=== PATIENT | male | born 1960 | race African-American/Black ===

== ENCOUNTER 2021-01-15 10:57 | Inpatient (IN) | payer OTHER ==
[2021-01-15 11:16] VITALS: BMI 24.4
[2021-01-15] MEDS ORDERED: MAGNESIUM CITRATE 300 ML BOTTLE PO PRN (11:27)
[2021-01-15] MEDS ORDERED: MENTHOL/PHENOL 1 EACH UD MM PRN (11:27)
[2021-01-15] MEDS ORDERED: ONDANSETRON *ODT* 4 MG TABLET SL PRN (11:27)
[2021-01-15] MEDS ORDERED: BISMUTH SUBSALICYLATE 262 MG/15 ML BTL PO PRN (11:27)
[2021-01-15] MEDS ORDERED: MAG HYDROX/AL HYDROX/SIMETH 30 ML UNIT-DOSE CUP PO PRN (11:27)
[2021-01-15] MEDS ORDERED: ACETAMINOPHEN 325 MG TABLET (FP) PO PRN (11:27)
[2021-01-15] MEDS ORDERED: diazePAM 5 MG TABLET PO PRN (11:27)
[2021-01-15] MEDS ORDERED: MAGNESIUM HYDROX 2400MG/30ML ORAL SUSPENSION 30 ML CUP PO PRN (11:27)
[2021-01-15] MEDS: hydrOXYzine PAMOATE 25 MG CAPSULE (FP) PO SCH ×3 (13:24→22:08)
[2021-01-15] MEDS: PRENATAL VITAMINS W/ FOLIC ACID TABLET (FP) PO SCH (13:25)
[2021-01-15] MEDS: diazePAM 5 MG TABLET PO SCH ×3 (13:25→22:08)
[2021-01-15] MEDS: NICOTINE 14 MG/24 HOURS TOPICAL PATCH TD SCH (13:31)
[2021-01-15 15:52] LABS: HEMATOCRIT 39.1 % (35.4-49); HEMOGLOBIN 12.6 GM/dL (11.7-16.9); MCH 27.3 pg (25.7-33.7); MCHC 32.3 g/dl (32.0-35.9); MEAN CELL VOLUME 84.6 fl (80-96); MEAN PLT VOLUME 7.2 fl (7.5-11.1); PLATELET COUNT 277 10^3/uL (134-434); RBC 4.62 M/mm3 (4.00-5.60); RDW 15.7 % (11.9-15.9); WHITE BLOOD COUNT 3.7 K/mm3 (4.0-10.0)
[2021-01-15 15:53] LABS: CHLORIDE 103 mmol/L (98-107); SODIUM 139 mmol/L (136-145)
[2021-01-15 15:55] LABS: CALCIUM 9.1 mg/dL (8.5-10.1)
[2021-01-15 15:56] LABS: ANION GAP 6 MMOL/L (8-16); CO2 30 mmol/L (21-32); GLUCOSE,RANDOM 126 mg/dL (74-106)
[2021-01-15 15:57] LABS: ALBUMIN 3.8 g/dl (3.4-5.0)
[2021-01-15 15:59] LABS: SGOT/AST 28 U/L (15-37); SGPT/ALT 27 U/L (13-61)
[2021-01-15 16:00] LABS: CREATININE 1.4 mg/dL (0.55-1.3)
[2021-01-15 16:01] LABS: BILIRUBIN,TOTAL 0.5 mg/dL (0.2-1); TOT PROT 8.3 g/dl (6.4-8.2)
[2021-01-15 16:02] LABS: ALK PHOS 93 U/L (45-117)
[2021-01-15] MEDS: NICOTINE 10 MG CARTRIDGE (INHALER) IH PRN (17:30)
[2021-01-15] MEDS: MELATONIN 5 MG TABLETS PO SCH (22:08)
[2021-01-15] MEDS: THIAMINE HCL 100 MG TABLET (FP) PO SCH (22:08)
[2021-01-16] MEDS: methaDONE HCL 40 MG DISPERSABLE TABLET PO SCH (05:17)
[2021-01-16] MEDS: hydrOXYzine PAMOATE 25 MG CAPSULE (FP) PO SCH ×5 (05:18→22:23)
[2021-01-16] MEDS: diazePAM 5 MG TABLET PO SCH ×4 (05:18→22:23)
[2021-01-16] MEDS: METHOCARBAMOL 500 MG TABLET PO PRN ×2 (05:18→10:29)
[2021-01-16] MEDS: PRENATAL VITAMINS W/ FOLIC ACID TABLET (FP) PO SCH (10:26)
[2021-01-16] MEDS: NICOTINE 14 MG/24 HOURS TOPICAL PATCH TD SCH (10:26)
[2021-01-16] MEDS: IBUPROFEN 400 MG TABLET (FP) PO PRN (10:29)
[2021-01-16] MEDS: ACETAMINOPHEN 325 MG TABLET (FP) PO PRN (14:54)
[2021-01-16] MEDS: NICOTINE POLACRILEX 2 MG GUM BUC PRN (18:12)
[2021-01-16] MEDS: THIAMINE HCL 100 MG TABLET (FP) PO SCH (22:23)
[2021-01-16] MEDS: MELATONIN 5 MG TABLETS PO SCH (22:23)
[2021-01-17] MEDS: diazePAM 5 MG TABLET PO SCH ×3 (05:05→22:21)
[2021-01-17] MEDS: hydrOXYzine PAMOATE 25 MG CAPSULE (FP) PO SCH ×5 (05:05→22:21)
[2021-01-17] MEDS: METHOCARBAMOL 500 MG TABLET PO PRN ×2 (05:06→15:36)
[2021-01-17] MEDS: methaDONE HCL 40 MG DISPERSABLE TABLET PO SCH (05:06)
[2021-01-17] MEDS: PRENATAL VITAMINS W/ FOLIC ACID TABLET (FP) PO SCH (10:06)
[2021-01-17] MEDS: NICOTINE 14 MG/24 HOURS TOPICAL PATCH TD SCH (10:07)
[2021-01-17] MEDS: NICOTINE POLACRILEX 2 MG GUM BUC PRN ×2 (10:08→17:58)
[2021-01-17 10:37] LABS: BLOOD UREA NITROGEN 18.1 mg/dL (7-18); CALCIUM 9.3 mg/dL (8.5-10.1)
[2021-01-17] MEDS: ACETAMINOPHEN 325 MG TABLET (FP) PO PRN (15:35)
[2021-01-17] MEDS: MELATONIN 5 MG TABLETS PO SCH (22:22)
[2021-01-17] MEDS: THIAMINE HCL 100 MG TABLET (FP) PO SCH (22:22)
[2021-01-18] MEDS: methaDONE HCL 40 MG DISPERSABLE TABLET PO SCH (05:55)
[2021-01-18] MEDS: hydrOXYzine PAMOATE 25 MG CAPSULE (FP) PO SCH ×5 (05:56→21:19)
[2021-01-18] MEDS: diazePAM 5 MG TABLET PO SCH ×2 (05:56→17:28)
[2021-01-18] MEDS: METHOCARBAMOL 500 MG TABLET PO PRN (05:57)
[2021-01-18] MEDS: PRENATAL VITAMINS W/ FOLIC ACID TABLET (FP) PO SCH (10:07)
[2021-01-18] MEDS: NICOTINE 14 MG/24 HOURS TOPICAL PATCH TD SCH (10:08)
[2021-01-18] MEDS: IBUPROFEN 400 MG TABLET (FP) PO PRN (21:18)
[2021-01-18] MEDS: MELATONIN 5 MG TABLETS PO SCH (21:19)
[2021-01-18] MEDS: THIAMINE HCL 100 MG TABLET (FP) PO SCH (21:20)
[2021-01-18] MEDS: ACETAMINOPHEN 325 MG TABLET (FP) PO PRN (23:17)
[2021-01-19] MEDS: methaDONE HCL 40 MG DISPERSABLE TABLET PO SCH (05:12)
[2021-01-19] MEDS: hydrOXYzine PAMOATE 25 MG CAPSULE (FP) PO SCH ×2 (05:12→10:15)
[2021-01-19] MEDS ORDERED: diazePAM 5 MG TABLET PO ONE (06:00)
[2021-01-19 10:05] VITALS: BP 138/90; PULSE 68; TEMP 97.1
[2021-01-19] MEDS: PRENATAL VITAMINS W/ FOLIC ACID TABLET (FP) PO SCH (10:15)
[2021-01-19] MEDS: NICOTINE 14 MG/24 HOURS TOPICAL PATCH TD SCH (10:16)
[2021-01-19] MEDS: NICOTINE 10 MG CARTRIDGE (INHALER) IH PRN (10:18)
[2021-01-19] MEDS: NICOTINE POLACRILEX 2 MG GUM BUC PRN (10:19)
== END 2021-01-19 11:40 | disposition other institution (70) | DRG 773 ==
LOC: YASAS 10:57 → Y3N 12:01
PROVIDERS: ADMIT Allergy & Immunology; ATTEND Allergy & Immunology
PROC: HZ2ZZZZ Detoxification Services for Substance Abuse Treatment (ICD-10-PCS; principal; 2021-01-15)
DX: F11.23 Opioid dependence with withdrawal (principal); F10.230 Alcohol dependence with withdrawal, uncomplicated; F14.20 Cocaine dependence, uncomplicated; F17.210 Nicotine dependence, cigarettes, uncomplicated; F19.24 Other psychoactive substance dependence with psychoactive substance-induced mood disorder; Z21 Asymptomatic human immunodeficiency virus [HIV] infection status; G47.00 Insomnia, unspecified; I10 Essential (primary) hypertension; K21.9 Gastro-esophageal reflux disease without esophagitis; J45.909 Unspecified asthma, uncomplicated; M54.50 Low back pain, unspecified; G89.29 Other chronic pain; Z98.890 Other specified postprocedural states; Z56.0 Unemployment, unspecified; Z86.69 Personal history of other diseases of the nervous system and sense organs
CPT/HCPCS: 36415; 80048; 80053; 82947; 83036; 84484; 85027; 86780; 93005; 93010; C9803; U0003; U0005

== ENCOUNTER 2021-01-19 11:48 | Inpatient (IN) | payer OTHER ==
[2021-01-19] MEDS ORDERED: LOPERAMIDE HCL 2 MG CAPSULE PO PRN (16:06)
[2021-01-19] MEDS ORDERED: guaiFENesin 200 MG/10 ML 10 ML UNIT-DOSE CUPS PO PRN (16:06)
[2021-01-19] MEDS ORDERED: MENTHOL/PHENOL 1 EACH UD MM PRN (16:06)
[2021-01-19] MEDS ORDERED: MAGNESIUM CITRATE 300 ML BOTTLE PO PRN (16:06)
[2021-01-19] MEDS ORDERED: NICOTINE POLACRILEX 2 MG GUM BUC PRN (16:06)
[2021-01-19] MEDS ORDERED: P-EPHED 60MG/TRIPROLIDI 2.5MG TABLET PO PRN (16:06)
[2021-01-19] MEDS ORDERED: NICOTINE 10 MG CARTRIDGE (INHALER) IH PRN (16:06)
[2021-01-19] MEDS ORDERED: ACETAMINOPHEN 325 MG TABLET (FP) PO PRN (16:06)
[2021-01-19] MEDS ORDERED: MAGNESIUM HYDROX 2400MG/30ML ORAL SUSPENSION 30 ML CUP PO PRN (16:06)
[2021-01-19] MEDS ORDERED: MAG HYDROX/AL HYDROX/SIMETH 30 ML UNIT-DOSE CUP PO PRN (16:06)
[2021-01-19] MEDS: hydrOXYzine PAMOATE 25 MG CAPSULE (FP) PO PRN ×2 (16:48→21:50)
[2021-01-19] MEDS: IBUPROFEN 400 MG TABLET (FP) PO PRN (16:48)
[2021-01-19] MEDS ORDERED: cloNIDine HCL 0.1 MG TABLET PO ONE (17:32)
[2021-01-19] MEDS: MELATONIN 5 MG TABLETS PO SCH (21:49)
[2021-01-19] MEDS: THIAMINE HCL 100 MG TABLET (FP) PO SCH (21:49)
[2021-01-20] MEDS: methaDONE HCL 40 MG DISPERSABLE TABLET PO SCH (07:18)
[2021-01-20] MEDS: PRENATAL VITAMINS W/ FOLIC ACID TABLET (FP) PO SCH (09:46)
[2021-01-20] MEDS: NICOTINE 14 MG/24 HOURS TOPICAL PATCH TD SCH (09:47)
[2021-01-20] MEDS ORDERED: cloNIDine HCL 0.1 MG TABLET PO ONE (11:03)
[2021-01-20] MEDS: IBUPROFEN 400 MG TABLET (FP) PO PRN ×2 (14:11→21:16)
[2021-01-20] MEDS: MELATONIN 5 MG TABLETS PO SCH (21:16)
[2021-01-20] MEDS: THIAMINE HCL 100 MG TABLET (FP) PO SCH (21:16)
[2021-01-20] MEDS: hydrOXYzine PAMOATE 25 MG CAPSULE (FP) PO PRN (21:16)
[2021-01-21] MEDS: methaDONE HCL 40 MG DISPERSABLE TABLET PO SCH (06:45)
[2021-01-21] MEDS: IBUPROFEN 400 MG TABLET (FP) PO PRN (06:49)
[2021-01-21] MEDS: PRENATAL VITAMINS W/ FOLIC ACID TABLET (FP) PO SCH (09:19)
[2021-01-21] MEDS: NICOTINE 14 MG/24 HOURS TOPICAL PATCH TD SCH (09:19)
[2021-01-21] MEDS ORDERED: cloNIDine HCL 0.1 MG TABLET PO PRN (11:30)
[2021-01-21] MEDS: MELATONIN 5 MG TABLETS PO SCH (21:04)
[2021-01-21] MEDS: THIAMINE HCL 100 MG TABLET (FP) PO SCH (21:04)
[2021-01-21] MEDS: hydrOXYzine PAMOATE 25 MG CAPSULE (FP) PO PRN (21:04)
[2021-01-22] MEDS: methaDONE HCL 40 MG DISPERSABLE TABLET PO SCH (06:43)
[2021-01-22] MEDS: PRENATAL VITAMINS W/ FOLIC ACID TABLET (FP) PO SCH (09:46)
[2021-01-22] MEDS: NICOTINE 14 MG/24 HOURS TOPICAL PATCH TD SCH (09:46)
[2021-01-22] MEDS: IBUPROFEN 400 MG TABLET (FP) PO PRN ×2 (09:47→22:01)
[2021-01-22] MEDS: LIDOCAINE 5% TOPICAL PATCH TP SCH (13:09)
[2021-01-22] MEDS: METHYL SALICYLATE/MENTHOL OINT 30 GM TUBE TP SCH ×2 (13:09→22:02)
[2021-01-22] MEDS: hydrOXYzine PAMOATE 25 MG CAPSULE (FP) PO PRN (20:15)
[2021-01-22] MEDS: GABAPENTIN 300 MG CAPSULE PO PRN (22:01)
[2021-01-22] MEDS: THIAMINE HCL 100 MG TABLET (FP) PO SCH (22:02)
[2021-01-22] MEDS: LIDOCAINE PATCH REMOVAL MC SCH (22:02)
[2021-01-22] MEDS: MELATONIN 5 MG TABLETS PO SCH (22:02)
[2021-01-23] MEDS: methaDONE HCL 40 MG DISPERSABLE TABLET PO SCH (06:35)
[2021-01-23] MEDS ORDERED: BICTEGRAV/EMTRICIT/TENOFOV (BIKTARVY) 50-200-25 MG TABLET PO SCH (08:00)
[2021-01-23] MEDS: PRENATAL VITAMINS W/ FOLIC ACID TABLET (FP) PO SCH (09:49)
[2021-01-23] MEDS: LIDOCAINE 5% TOPICAL PATCH TP SCH (09:50)
[2021-01-23] MEDS: METHYL SALICYLATE/MENTHOL OINT 30 GM TUBE TP SCH ×2 (09:50→21:17)
[2021-01-23] MEDS: NICOTINE 14 MG/24 HOURS TOPICAL PATCH TD SCH (09:51)
[2021-01-23] MEDS ORDERED: LISINOPRIL 20 MG TABLET PO SCH (10:00)
[2021-01-23] MEDS ORDERED: HYDROCHLOROTHIAZIDE 25 MG TABLET (FP) PO SCH (10:00)
[2021-01-23] MEDS ORDERED: amLODIPine BESYLATE 5 MG TABLET (FP) PO SCH (10:00)
[2021-01-23] MEDS: LIDOCAINE PATCH REMOVAL MC SCH (21:17)
[2021-01-23] MEDS: THIAMINE HCL 100 MG TABLET (FP) PO SCH (21:18)
[2021-01-23] MEDS: GABAPENTIN 300 MG CAPSULE PO PRN (21:18)
[2021-01-23] MEDS: IBUPROFEN 400 MG TABLET (FP) PO PRN (21:18)
[2021-01-23] MEDS: MELATONIN 5 MG TABLETS PO SCH (21:18)
[2021-01-23] MEDS: hydrOXYzine PAMOATE 25 MG CAPSULE (FP) PO PRN (21:18)
[2021-01-23 23:16] VITALS: TEMP 98.6
[2021-01-23 23:27] VITALS: BP 170/95; PULSE 83
== END 2021-01-23 22:35 | disposition left against medical advice (07) | DRG 770 ==
LOC: YASAS 11:48 → Y5N 11:49
PROVIDERS: ADMIT Allergy & Immunology; ATTEND Allergy & Immunology
PROC: HZ42ZZZ Group Counseling for Substance Abuse Treatment, Cognitive-Behavioral (ICD-10-PCS; principal; 2021-01-19)
DX: F14.20 Cocaine dependence, uncomplicated (principal); F17.210 Nicotine dependence, cigarettes, uncomplicated; Z21 Asymptomatic human immunodeficiency virus [HIV] infection status; I10 Essential (primary) hypertension; J45.909 Unspecified asthma, uncomplicated; K21.9 Gastro-esophageal reflux disease without esophagitis; M54.50 Low back pain, unspecified; G89.29 Other chronic pain; R20.0 Anesthesia of skin
CPT/HCPCS: 93005; 93010; J0735

== ENCOUNTER 2024-02-01 17:50 | Inpatient (IN) | payer OTHER ==
[2024-02-01 18:33] VITALS: BMI 21.8
[2024-02-01] MEDS ORDERED: diazePAM 5 MG TABLET PO PRN (18:53)
[2024-02-01] MEDS ORDERED: NICOTINE POLACRILEX 2 MG LOZENGE BC PRN (19:00)
[2024-02-01] MEDS ORDERED: MAGNESIUM HYDROX 2400MG/30ML ORAL SUSPENSION 30 ML CUP PO PRN (19:00)
[2024-02-01] MEDS ORDERED: IBUPROFEN 400 MG TABLET (FP) PO PRN (19:00)
[2024-02-01] MEDS ORDERED: guaiFENesin 600 MG TABLET.ER (FP) PO PRN (19:00)
[2024-02-01] MEDS ORDERED: LOPERAMIDE HCL 2 MG CAPSULE PO PRN (19:00)
[2024-02-01] MEDS ORDERED: NICOTINE POLACRILEX 2 MG GUM BUC PRN (19:00)
[2024-02-01] MEDS ORDERED: IBUPROFEN 600 MG TABLET (FP) PO PRN (19:00)
[2024-02-01] MEDS ORDERED: BENZONATATE 200 MG CAPSULE PO PRN (19:00)
[2024-02-01] MEDS ORDERED: DICYCLOMINE HCL 10 MG CAPSULE PO PRN (19:00)
[2024-02-01] MEDS ORDERED: ACETAMINOPHEN 325 MG TABLET (FP) PO PRN (19:00)
[2024-02-01] MEDS ORDERED: POLYETHYLENE GLYCOL (HEALTHYLAX) 3350 17 GM PACKET PO PRN (19:00)
[2024-02-01] MEDS ORDERED: ONDANSETRON *ODT* 4 MG TABLET SL PRN (19:00)
[2024-02-01] MEDS ORDERED: NALOXONE (NARCAN) HCL 4 MG/0.1 ML SPRAY NS PRN (19:00)
[2024-02-01] MEDS ORDERED: BISMUTH SUBSALICYLATE 524 MG/30 ML PO PRN (19:00)
[2024-02-01] MEDS ORDERED: BENZOCAINE/MENTHOL (CHLORASEPTIC ) LOZENGE MM PRN (19:00)
[2024-02-01] MEDS: THIAMINE 100 MG TABLET PO SCH (22:17)
[2024-02-01] MEDS: METHOCARBAMOL 500 MG TABLET PO PRN (22:18)
[2024-02-01] MEDS: diazePAM 5 MG TABLET PO SCH (22:18)
[2024-02-01] MEDS: MELATONIN 5 MG TABLETS PO SCH (22:19)
[2024-02-02] MEDS: diazePAM 5 MG TABLET PO SCH (05:30)
[2024-02-02] MEDS ORDERED: diazePAM 5 MG TABLET PO SCH (06:00)
[2024-02-02] MEDS ORDERED: methaDONE HCL 40 MG DISPERSABLE TABLET PO SCH (08:45)
[2024-02-02] MEDS: BICTEGRAV/EMTRICIT/TENOFOV (BIKTARVY) 50-200-25 MG TABLET PO SCH (09:11)
[2024-02-02] MEDS: HYDROCHLOROTHIAZIDE 25 MG TABLET (FP) PO SCH (09:11)
[2024-02-02] MEDS: PRENATAL VITAMINS W/ FOLIC ACID TABLET (FP) PO SCH (09:12)
[2024-02-02] MEDS: PANTOPRAZOLE 20 MG TABLET PO SCH (09:12)
[2024-02-02] MEDS: FLU VACCINE (FLULAVAL) PF 45 MCG/0.5 ML SYRINGE 2024-2025 IM ONE (11:16)
[2024-02-02 11:19] LABS: HEMATOCRIT 37.7 % (35.4-49); HEMOGLOBIN 12.4 GM/dL (11.7-16.9); MCH 28.5 pg (25.7-33.7); MCHC 32.8 g/dl (32.0-35.9); MEAN CELL VOLUME 86.8 fl (80-96); MEAN PLT VOLUME 7.3 fl (7.5-11.1); PLATELET COUNT 288 10^3/uL (134-434); RBC 4.35 M/mm3 (4.00-5.60); RDW 15.2 % (11.9-15.9); WHITE BLOOD COUNT 3.2 K/mm3 (4.0-10.0)
[2024-02-02 11:26] LABS: CHLORIDE 104 mmol/L (98-107); POTASSIUM 3.7 mmol/L (3.5-5.1); SODIUM 139 mmol/L (136-145)
[2024-02-02 11:30] LABS: ANION GAP 4 mmol/L (4-13); CALCIUM 8.9 mg/dL (8.5-10.1); CO2 31 mmol/L (21-32)
[2024-02-02 11:31] LABS: BLOOD UREA NITROGEN 22.2 mg/dL (7-18); GLUCOSE,RANDOM 142 mg/dL (74-106)
[2024-02-02 11:34] LABS: CREATININE 1.3 mg/dL (0.55-1.3); SGOT/AST 19 U/L (15-37); SGPT/ALT 22 U/L (13-61)
[2024-02-02 11:35] LABS: BILIRUBIN,TOTAL 0.4 mg/dL (0.2-1); TOT PROT 6.6 g/dl (6.4-8.2)
[2024-02-02 11:36] LABS: ALK PHOS 105 U/L (45-117)
[2024-02-02] MEDS: MAG HYDROX/AL HYDROX/SIMETH 30 ML UNIT-DOSE CUP PO PRN (17:17)
[2024-02-03] MEDS: diazePAM 5 MG TABLET PO ONE (05:23)
[2024-02-03] MEDS ORDERED: diazePAM 5 MG TABLET PO SCH (06:00)
[2024-02-04] MEDS ORDERED: diazePAM 5 MG TABLET PO ONE (06:00)
[2024-02-04] MEDS ORDERED: ALBUTEROL SO4 HFA INHALER IH PRN (09:22)
[2024-02-04] MEDS: NALOXONE (NYS OPIOID OVERDOSE PROGRAM) 4 MG/0.1 ML SPRAY NS SCH (10:34)
[2024-02-04 12:36] VITALS: BP 121/79; PULSE 79; RESP 16; TEMP 97.7
== END 2024-02-04 13:09 | disposition other institution (70) | DRG 773 ==
LOC: YASAS 17:50 → Y3N 19:41 → Y6N 20:04
PROVIDERS: ADMIT Allergy & Immunology; ATTEND Surgery
PROC: HZ2ZZZZ Detoxification Services for Substance Abuse Treatment (ICD-10-PCS; principal; 2024-02-01)
DX: F10.230 Alcohol dependence with withdrawal, uncomplicated (principal); F11.20 Opioid dependence, uncomplicated; F14.20 Cocaine dependence, uncomplicated; F17.210 Nicotine dependence, cigarettes, uncomplicated; F19.282 Other psychoactive substance dependence with psychoactive substance-induced sleep disorder; Z21 Asymptomatic human immunodeficiency virus [HIV] infection status; G47.00 Insomnia, unspecified; I10 Essential (primary) hypertension; K21.9 Gastro-esophageal reflux disease without esophagitis; M54.50 Low back pain, unspecified; G89.29 Other chronic pain
CPT/HCPCS: 36415; 80053; 80305; 80307; 83036; 85027; 86780; 87811; 93005; 93010

== ENCOUNTER 2024-02-04 13:15 | Inpatient (IN) | payer OTHER ==
[2024-02-04] MEDS ORDERED: IBUPROFEN 400 MG TABLET (FP) PO PRN (15:54)
[2024-02-04] MEDS ORDERED: LOPERAMIDE HCL 2 MG CAPSULE PO PRN (15:54)
[2024-02-04] MEDS ORDERED: BENZOCAINE/MENTHOL (CHLORASEPTIC ) LOZENGE MM PRN (15:54)
[2024-02-04] MEDS ORDERED: NICOTINE POLACRILEX 2 MG GUM BUC PRN (15:54)
[2024-02-04] MEDS ORDERED: guaiFENesin 600 MG TABLET.ER (FP) PO PRN (15:54)
[2024-02-04] MEDS ORDERED: BENZONATATE 200 MG CAPSULE PO PRN (15:54)
[2024-02-04] MEDS ORDERED: POLYETHYLENE GLYCOL (HEALTHYLAX) 3350 17 GM PACKET PO PRN (15:54)
[2024-02-04] MEDS: MELATONIN 5 MG TABLETS PO SCH (21:53)
[2024-02-04] MEDS: THIAMINE 100 MG TABLET PO SCH (21:53)
[2024-02-05] MEDS ORDERED: methaDONE HCL 10 MG TABLET PO SCH (06:00)
[2024-02-05] MEDS: PRENATAL VITAMINS W/ FOLIC ACID TABLET (FP) PO SCH (06:07)
[2024-02-05] MEDS: NICOTINE 14 MG/24 HOURS TOPICAL PATCH TD SCH (06:08)
[2024-02-05] MEDS ORDERED: ALBUTEROL SO4 HFA INHALER IH PRN (08:58)
[2024-02-05] MEDS: PANTOPRAZOLE 20 MG TABLET PO SCH (09:38)
[2024-02-05] MEDS: amLODIPine BESYLATE 5 MG TABLET (FP) PO SCH (09:38)
[2024-02-05] MEDS: HYDROCHLOROTHIAZIDE 25 MG TABLET (FP) PO SCH (09:38)
[2024-02-05] MEDS: BICTEGRAV/EMTRICIT/TENOFOV (BIKTARVY) 50-200-25 MG TABLET PO SCH (09:38)
[2024-02-05] MEDS: METHOCARBAMOL 500 MG TABLET PO PRN (21:14)
[2024-02-07] MEDS: ACETAMINOPHEN 325 MG TABLET (FP) PO PRN (09:57)
[2024-02-09] MEDS: LIDOCAINE 5% TOPICAL PATCH TP SCH (16:29)
[2024-02-09] MEDS: VITAMINS A AND D TOPICAL OINTMENT TP SCH (17:48)
[2024-02-09] MEDS: MAGNESIUM HYDROX 2400MG/30ML ORAL SUSPENSION 30 ML CUP PO PRN (20:33)
[2024-02-09] MEDS: BACLOFEN 10 MG TABLET (FP) PO SCH (21:19)
[2024-02-09] MEDS: LIDOCAINE PATCH REMOVAL MC SCH (21:19)
[2024-02-09] MEDS: GABAPENTIN 300 MG CAPSULE PO SCH (21:19)
[2024-02-09] MEDS: METHYL SALICYLATE/MENTHOL 30 GM TUBE TP SCH (21:20)
[2024-02-11] MEDS: GABAPENTIN 400 MG, GABAPENTIN 100 MG PO SCH (13:25)
[2024-02-11] MEDS ORDERED: GABAPENTIN 300 MG CAPSULE PO SCH (14:00)
[2024-02-12] MEDS: IBUPROFEN 600 MG TABLET (FP) PO PRN (07:13)
[2024-02-12] MEDS: MAG HYDROX/AL HYDROX/SIMETH 30 ML UNIT-DOSE CUP PO PRN (17:36)
[2024-02-13] MEDS: TRIMETHOBENZAMIDE HCL 200MG/2ML INJ IM ONE (00:43)
[2024-02-14] MEDS: hydrOXYzine PAMOATE 25 MG CAPSULE (FP) PO PRN (02:19)
[2024-02-16 06:32] VITALS: BP 130/72; PULSE 78; RESP 17; TEMP 97.1
[2024-02-16] MEDS: NALOXONE (NYS OPIOID OVERDOSE PROGRAM) 4 MG/0.1 ML SPRAY NS SCH (08:57)
== END 2024-02-16 09:35 | disposition home or self-care (01) | DRG 772 ==
LOC: YASAS 13:15 → Y5N 13:16 → Y3NR 14:00 → Y3W 02-05 11:41
PROVIDERS: ADMIT Psychiatry & Neurology Pain Medicine; ATTEND Psychiatry & Neurology Pain Medicine
PROC: HZ42ZZZ Group Counseling for Substance Abuse Treatment, Cognitive-Behavioral (ICD-10-PCS; principal; 2024-02-04)
DX: F11.20 Opioid dependence, uncomplicated (principal); F14.20 Cocaine dependence, uncomplicated; F10.20 Alcohol dependence, uncomplicated; F17.210 Nicotine dependence, cigarettes, uncomplicated; Z21 Asymptomatic human immunodeficiency virus [HIV] infection status; I10 Essential (primary) hypertension; J45.909 Unspecified asthma, uncomplicated; K21.9 Gastro-esophageal reflux disease without esophagitis; L85.3 Xerosis cutis; M47.819 Spondylosis without myelopathy or radiculopathy, site unspecified; M54.50 Low back pain, unspecified; G89.29 Other chronic pain; Z79.899 Other long term (current) drug therapy
CPT/HCPCS: J0475